=== PATIENT | female | born 1955 | race Caucasian/White ===

== ENCOUNTER 2017-11-17 11:36 | Outpatient (CLI) | payer OTHER ==
--- NOTE | 2017-11-18 14:27 | Mammography Report ---
DATE OF SERVICE: 11/17/2017 EXAM: DIGITAL BILATERAL SCREENING MAMMOGRAM: 11/17/2017 CLINICAL INDICATION: A 62-year-old with a history of late childbearing, family history of breast cancer, for screening. COMPARISON: 02/2015, 07/2013, 10/2011, 08/2009. TECHNIQUE: Routine CC and MLO projections were obtained of the breasts. Bilateral laterally exaggerated craniocaudal views. FINDINGS: The breasts demonstrate scattered fibroglandular densities bilaterally. Coarse and punctate, typically benign calcifications are present. No suspicious masses, clustered microcalcifications, or regions of architectural distortion are identified. IMPRESSION: BENIGN FINDINGS. RECOMMENDATIONS: Routine annual screening unless otherwise clinically indicated. BIRADS CATEGORY 2-BENIGN FINDINGS. STANDARD QUALIFYING STATEMENTS: 1. This examination was reviewed with the aid of Computer-Aided Detection (CAD) . 2. A negative or benign imaging report should not delay biopsy if clinically suspicious findings are present. Consider surgical consultation if warranted. More than 5% of cancers are not identified by imaging. 3. Dense breasts may obscure an underlying neoplasm. TD: 11/18/2017 15:17 [facility]MA
== END 2017-11-17 11:37 | disposition home or self-care (01) ==
LOC: DI.S 11:36
PROVIDERS: ATTEND Physician Assistant Medical
DX: Z12.31 Encounter for screening mammogram for malignant neoplasm of breast (principal); Z80.3 Family history of malignant neoplasm of breast
CPT/HCPCS: 77067

== ENCOUNTER 2020-08-12 15:08 | Outpatient (CLI) | payer MEDICARE | END 2020-08-12 15:09 | disposition home or self-care (01) | LOC: COV 15:08 | PROVIDERS: ATTEND Family Medicine | DX: Z20.828 Contact with and (suspected) exposure to other viral communicable diseases (principal) ==

== ENCOUNTER 2020-09-18 08:03 | Outpatient (CLI) | payer MEDICARE ==
[2020-09-18 15:25] LABS: BASOPHILS % (AUTO) 0.6 %; EOSINOPHILS # (AUTO) 0.1 10^3/uL (0.0-0.7); EOSINOPHILS % (AUTO) 3.4 %; HGB - HEMOGLOBIN 13.8 g/dL (12.0-16.0); LYMPHOCYTES # (AUTO) 1.2 10^3/uL (1.5-3.5); LYMPHOCYTES % (AUTO) 38.9 %; MEAN CORPUSCULAR HEMOGLOBIN 32.9 pg (27.0-31.0); MEAN CORPUSCULAR HGB CONC 32.5 g/dL (32.0-36.0); MEAN CORPUSCULAR VOLUME 101.2 fL (81.0-99.0); MEAN PLATELET VOLUME 12.2 fL (7.9-10.8); MONOCYTES # (AUTO) 0.3 10^3/uL (0.0-1.0); MONOCYTES % (AUTO) 8.5 %; NEUTROPHILS # (AUTO) 1.6 10^3/uL (1.5-6.6); NEUTROPHILS % (AUTO) 48.6 %; PLT - PLATELET COUNT 240 10^3/uL (130-450); RED BLOOD COUNT 4.19 10^6/uL (4.20-5.40); RED CELL DISTRIBUTION WIDTH 11.9 % (12.0-15.0); WHITE BLOOD COUNT 3.2 x10^3/uL (4.8-10.8)
[2020-09-18 16:08] LABS: ALBUMIN 4.3 g/dL (3.2-5.5); ALBUMIN/GLOBULIN RATIO 1.9 (1.0-2.2); ALKALINE PHOSPHATASE 41 IU/L (42-121); ALT ALANINE AMINOTRANSFERASE 14 IU/L (10-60); AST ASPARTATE AMINOTRANSFERASE 17 IU/L (10-42); BUN - BLOOD UREA NITROGEN 18 mg/dL (6-20); CALCIUM 9.4 mg/dL (8.5-10.3); CARBON DIOXIDE - CO2 28 mmol/L (21-32); CHLORIDE 103 mmol/L (101-111); CHOL/HDL RATIO 3.1 (<4.4); CHOLESTEROL 233 mg/dL; CREATININE 0.9 mg/dL (0.4-1.0); GLUCOSE 99 mg/dL (70-100); HDL CHOLESTEROL 74 mg/dL; LDL CHOLESTEROL,CALCULATED 147 mg/dL; SODIUM 139 mmol/L (135-145); TOTAL PROTEIN 6.6 g/dL (6.7-8.2); VLDL CHOLESTEROL 12 mg/dL
== END 2020-09-18 08:04 | disposition home or self-care (01) ==
LOC: LAB.S 08:03
PROVIDERS: ATTEND Registered Nurse
DX: E78.2 Mixed hyperlipidemia (principal); N39.3 Stress incontinence (female) (male); H93.A1 Pulsatile tinnitus, right ear; Z79.899 Other long term (current) drug therapy
CPT/HCPCS: 36415; 80053; 80061; 83721; 84443; 85025

== ENCOUNTER 2021-03-27 07:04 | Outpatient (CLI) | payer MEDICARE ==
[2021-03-27 15:28] LABS: BASOPHILS % (AUTO) 0.8 %; EOSINOPHILS # (AUTO) 0.2 10^3/uL (0.0-0.7); EOSINOPHILS % (AUTO) 4.1 %; HCT - HEMATOCRIT 40.6 % (37.0-47.0); HGB - HEMOGLOBIN 13.2 g/dL (12.0-16.0); LYMPHOCYTES # (AUTO) 1.2 10^3/uL (1.5-3.5); LYMPHOCYTES % (AUTO) 33.1 %; MEAN CORPUSCULAR HEMOGLOBIN 32.9 pg (27.0-31.0); MEAN CORPUSCULAR HGB CONC 32.5 g/dL (32.0-36.0); MEAN CORPUSCULAR VOLUME 101.2 fL (81.0-99.0); MEAN PLATELET VOLUME 11.4 fL (7.9-10.8); MONOCYTES # (AUTO) 0.3 10^3/uL (0.0-1.0); NEUTROPHILS % (AUTO) 53.7 %; PLT - PLATELET COUNT 234 10^3/uL (130-450); RED BLOOD COUNT 4.01 10^6/uL (4.20-5.40); RED CELL DISTRIBUTION WIDTH 11.9 % (12.0-15.0); WHITE BLOOD COUNT 3.6 x10^3/uL (4.8-10.8)
[2021-03-27 15:59] LABS: CALCIUM 9.4 mg/dL (8.5-10.3); CREATININE 0.9 mg/dL (0.4-1.0); POTASSIUM 4.4 mmol/L (3.5-5.0)
[2021-03-28 12:32] LABS: HEPATITIS C ANTIBODY NON-REACTIVE (NON-REACTIVE)
== END 2021-03-27 07:05 | disposition home or self-care (01) ==
LOC: LAB.S 07:04
PROVIDERS: ATTEND Registered Nurse
DX: Z01.84 Encounter for antibody response examination (principal); D72.819 Decreased white blood cell count, unspecified
CPT/HCPCS: 36415; 80048; 85025; 86803

== ENCOUNTER 2021-04-17 08:00 | Outpatient (CLI) | payer MEDICARE | END 2021-04-17 23:59 | disposition home or self-care (01) | LOC: LAB.F 08:00 | PROVIDERS: ATTEND Registered Nurse | DX: R30.0 Dysuria (principal) | CPT/HCPCS: 81002 ==

== ENCOUNTER 2021-04-20 08:00 | Outpatient (CLI) | payer MEDICARE | END 2021-04-20 23:59 | disposition home or self-care (01) | LOC: LAB.S 08:00 | PROVIDERS: ATTEND Physician Assistant Medical | DX: R35.0 Frequency of micturition (principal) | CPT/HCPCS: 87086; 87181 ==

== ENCOUNTER 2021-05-21 15:23 | Outpatient (CLI) | payer MEDICARE ==
[2021-05-28 17:52] LABS: 18 KD (IGG) BAND NON-REACTIVE; 23 KD (IGG) BAND NON-REACTIVE; 23 KD (IGM) BLOT NON-REACTIVE; 28 KD (IGG) BAND NON-REACTIVE; 30 KD (IGG) BAND NON-REACTIVE; 39 KD (IGG) BAND NON-REACTIVE; 39 KD (IGM) BLOT NON-REACTIVE; 41 KD (IGG) BAND NON-REACTIVE; 41 KD (IGM) BLOT NON-REACTIVE; 45 KD (IGG) BAND NON-REACTIVE; 58 KD (IGG) BAND NON-REACTIVE; 66 KD (IGG) BAND NON-REACTIVE; 93 KD (IGG) BAND NON-REACTIVE
== END 2021-05-21 15:24 | disposition home or self-care (01) ==
LOC: LAB.S 15:23
PROVIDERS: ATTEND Acupuncturist
DX: S30.860D Insect bite (nonvenomous) of lower back and pelvis, subsequent encounter (principal); R53.83 Other fatigue
CPT/HCPCS: 81599; 86617; 87801

== ENCOUNTER 2021-09-15 13:15 | Outpatient (CLI) | payer MEDICARE ==
--- NOTE | 2021-09-16 11:50 | Mammography Report ---
BILATERAL DIGITAL SCREENING MAMMOGRAM 3D/2D WITH EXAGGERATED CC: 09/15/2021 CLINICAL: Family history of breast cancer. Comparison is made to exams dated: 11/17/2017 mammogram, 03/11/2015 mammogram, 08/07/2013 mammogram, a nd 11/10/2011 mammogram - [facility]. The tissue of both breasts is predominantly fatty. No significant masses, calcifications, or other findings are seen in either breast. There has been no significant interval change. IMPRESSION: NEGATIVE There is no mammographic evidence of malignancy. A 1 year screening mammogram is recommended. This exam was interpreted at Station ID: [id number]. NOTE: For mammograms, a report in lay terms will be sent to the patient. Approximately 15% of breast malignancies will not be visualized mammographically. In the management of a palpable breast mass, a negative mammogram must not discourage biopsy of a clinically suspicious lesion. Electronically Signed By: Kenton Louie M.D., jr/rororad:09/15/2021 14:20:25 ACR BI-RADS Category 1: Negative 3341F PARENCHYMAL PATTERN: (F) - The breast(s) demonstrate(s) diffuse fatty replacement. BI-RADS CATEGORY: (1) - 1 RECOMMENDATION: (ANNUAL) - Recommend routine annual screening mammography. [id number] 1 year screening LATERALITY: (B)
== END 2021-09-15 13:16 | disposition home or self-care (01) ==
LOC: DI.S 13:15
PROVIDERS: ATTEND Registered Nurse
DX: Z12.31 Encounter for screening mammogram for malignant neoplasm of breast (principal); Z80.3 Family history of malignant neoplasm of breast

== ENCOUNTER 2022-05-20 12:49 | Outpatient (CLI) | payer MEDICARE ==
--- NOTE | 2022-05-20 16:09 | DEXA Report ---
PROCEDURE: Dexa Spine and/or Hip INDICATIONS: SCREENING FOR OSTEOPOROSIS TECHNIQUE: Dual energy x-ray absorptiometry (DXA) was performed on a [employer] System. Regions measur ed are the AP Spine, femoral neck, and if needed forearm. COMPARISON: 08/21/2015. FINDINGS: Lumbar Spine: Bone Mineral Density 0.940 g/cm/cm,T score -2.0, osteopenia Left Hip: Bone Mineral Density 0.908 g/cm/cm,T score -0.8, normal Left Femoral Neck: Bone Mineral Density 0.828 g/cm/cm, T score -1.5, osteopenia (T score greater or equal to -1.0: NORMAL) (T score from -1.1 to -2.4: OSTEOPENIA) (T score less than or equal to -2.5 to: OSTEOPOROSIS) Impression: Osteopenia. Bone mineral density is decreased 6.9% interval since prior exam obtained 08/21/2015. Patients with diagnosis of osteoporosis or osteopenia should have regular bone mineral density assess ment. For those eligible for Medicare, routine testing is allowed once every 2 years. Testing frequ ency can be increased for patients who have rapidly progressing disease or for those who are receivin g medical therapy to restore bone mass. Reviewed by: Faiza Nicholson MD, PhD on 05/20/2022 4:07 PM PDT Approved by: Faiza Nicholson MD, PhD on 05/20/2022 4:07 PM PDT Station ID: [id number]
== END 2022-05-20 12:50 | disposition home or self-care (01) ==
LOC: DI 12:49
PROVIDERS: ATTEND Obstetrics & Gynecology
DX: Z13.820 Encounter for screening for osteoporosis (principal); M85.89 Other specified disorders of bone density and structure, multiple sites

== ENCOUNTER 2023-04-04 15:00 | Outpatient (CLI) | payer MEDICARE ==
--- NOTE | 2023-04-04 09:44 | XRAY Report ---
PROCEDURE: Knee 4 View RT INDICATIONS: RIGHT KNEE PAIN TECHNIQUE: 4 views of the right knee(s) were acquired. COMPARISON: None. FINDINGS: Bones: No fractures or dislocations. No suspicious bony lesions. Definite osteophytes and possibl e narrowing of joint space. This is tricompartmental. Soft tissues: No knee joint effusion. No suspicious soft tissue calcifications or masses. IMPRESSION: No acute bony abnormality. Tricompartmental Kellgren-Baljit scale of osteoarthritis: Grade 1-2: mild osteoarthritis. Reviewed by: Efrain Weaver on 04/04/2023 9:42 AM PDT Approved by: Efrain Weaver on 04/04/2023 9:42 AM PDT Station ID: [id number]
== END 2023-04-04 15:04 | disposition home or self-care (01) ==
LOC: DI.WOS 15:00
PROVIDERS: ATTEND Physician Assistant Surgical
DX: M17.11 Unilateral primary osteoarthritis, right knee (principal)

== ENCOUNTER 2023-04-05 07:10 | Outpatient (CLI) | payer MEDICARE ==
[2023-04-05 15:00] LABS: EOSINOPHILS # (AUTO) 0.1 10^3/uL (0.0-0.7); EOSINOPHILS % (AUTO) 2.6 %; HCT - HEMATOCRIT 44.3 % (37.0-47.0); HGB - HEMOGLOBIN 14.4 g/dL (12.0-16.0); LYMPHOCYTES # (AUTO) 1.4 10^3/uL (1.5-3.5); LYMPHOCYTES % (AUTO) 32.6 %; MEAN CORPUSCULAR HGB CONC 32.5 g/dL (32.0-36.0); MEAN CORPUSCULAR VOLUME 98.4 fL (81.0-99.0); MEAN PLATELET VOLUME 11.1 fL (7.9-10.8); MONOCYTES # (AUTO) 0.3 10^3/uL (0.0-1.0); MONOCYTES % (AUTO) 6.7 %; NEUTROPHILS # (AUTO) 2.4 10^3/uL (1.5-6.6); NEUTROPHILS % (AUTO) 56.9 %; PLT - PLATELET COUNT 238 10^3/uL (130-450); WHITE BLOOD COUNT 4.2 x10^3/uL (4.8-10.8)
[2023-04-05 15:41] LABS: ALBUMIN/GLOBULIN RATIO 1.5 (1.0-2.2); ALKALINE PHOSPHATASE 47 IU/L (42-121); ALT ALANINE AMINOTRANSFERASE 15 IU/L (10-60); AST ASPARTATE AMINOTRANSFERASE 16 IU/L (10-42); BILIRUBIN,TOTAL 0.7 mg/dL (0.2-1.0); BUN - BLOOD UREA NITROGEN 20 mg/dL (6-20); CALCIUM 9.2 mg/dL (8.5-10.3); CARBON DIOXIDE - CO2 27 mmol/L (21-32); CHLORIDE 107 mmol/L (101-111); CHOL/HDL RATIO 3.7 (<4.4); CHOLESTEROL 260 mg/dL; CREATININE 0.8 mg/dL (0.4-1.0); GFR - MDRD 71 (>89); GLUCOSE 108 mg/dL (70-100); HDL CHOLESTEROL 70 mg/dL; LDL CHOLESTEROL,CALCULATED 174 mg/dL; LDL/HDL RATIO 2.5 (<4.4); POTASSIUM 4.5 mmol/L (3.5-5.0); SODIUM 140 mmol/L (135-145); TOTAL PROTEIN 6.6 g/dL (6.7-8.2); TRIGLYCERIDES 78 mg/dL; VLDL CHOLESTEROL 16 mg/dL
[2023-04-05 15:44] LABS: THYROID STIMULATING HORMONE 2.92 uIU/mL (0.34-5.60)
== END 2023-04-05 07:11 | disposition home or self-care (01) ==
LOC: LAB.S 07:10
PROVIDERS: ATTEND Registered Nurse
DX: E78.2 Mixed hyperlipidemia (principal); Z79.899 Other long term (current) drug therapy
CPT/HCPCS: 36415; 80053; 80061; 83721; 84443; 85025

== ENCOUNTER 2023-05-09 08:00 | Outpatient (CLI) | payer MEDICARE ==
--- NOTE | 2023-05-09 16:10 | XRAY Report ---
PROCEDURE: Shoulder 3 View RT INDICATIONS: RIGHT SHOULDER PAIN TECHNIQUE: 3 views of the shoulder were acquired. COMPARISON: None. FINDINGS: Bones: No fractures or dislocations. No suspicious bony lesions. Visualized ribs appear intact. Severe acromioclavicular degenerative narrowing. Mild glenohumeral narrowing. No erosions. Soft tissues: No suspicious soft tissue calcifications. IMPRESSION: Prominent acromioclavicular and mild glenohumeral arthritic change. Reviewed by: Paris Rasmussen MD on 05/09/2023 4:09 PM PDT Approved by: Paris Rasmussen MD on 05/09/2023 4:09 PM PDT Station ID: [id number]
== END 2023-05-09 23:59 | disposition home or self-care (01) ==
LOC: DI.WOS 08:00
PROVIDERS: ATTEND Physician Assistant Surgical
DX: M19.011 Primary osteoarthritis, right shoulder (principal)

== ENCOUNTER 2023-08-02 07:58 | Outpatient (CLI) | payer MEDICARE ==
--- NOTE | 2023-08-02 07:21 | CARDIAC PROCEDURE NOTE ---
Stress Test Report Service Date: 08/02/23 Service Time: 08:00 Ordering Provider: Leigh Walker FNP-C Indication for Test: Assess exertional tolerance and chronotropic response to exercise in patient with incidentally noted bradycardia and PVCs. Significant Medical History: Kenyetta is referred for a treadmill stress echocardiogram to assess incidental findings of bradycardia and PVCs. The first time a slow heart rate was noted was a few months ago when she was traveling in [place] at high altitude, when a pulse oximeter revealed a heart rate in the 30s. Subsequently she had a slow heart rate at an Orthopedic clinic visit. She actually tolerated the trip to high altitude in [place] without too much limitation and remains active, exercising regularly and she is only minimally symptomatic. She does describe very brief and rare fluttering sensations in her chest, but denies dizziness/lightheadedness or chest pain, undue shortness of breath and extremity swelling. She underwent a [facility] screening assessment recently that showed sinus rhythm with PVCs on EKG, mild bilateral carotid artery thickening, no evidence of aortic aneurysm, normal ABIs and a lipid panel that was notable for the following: Total cholesterol 261, HDL cholesterol 70, LDL cholesterol 172, triglycerides 96. Fasting glucose was 104; it does not appear the latter has been further evaluated. Cardiac Risk Factors: Positive for hyperlipidemia (not treated) and family history of heart disease (brother with sudden cardiac after declining recommended CABG surgery at age 59, father with probable cardiac and mother with history of CHF); no history of tobacco smoking, hypertension or diabetes. Type of Stress Test: ETT with Echocardiography Procedure: -Exercise Treadmill Test- After signing informed consent, the patient underwent echo imaging at rest and then performed treadmill exercise using a Wojciech protocol. The patient exercised for 9 minutes 17 seconds and achieved a peak heart rate of 154 (101 percent predicted maximum heart rate for age), and an estimated workload of 10.6 METS. The test was terminated due to fatigue/shortness of breath. Resting heart rate: 63 Peak heart rate: 154 Normal response to exercise. Resting BP: 133/84 Peak BP: 187/88 Normal increase of systolic BP and abnormal increase in diastolic BP in response to exercise. Rhythm during exercise: Sinus rhythm throughout with frequent, primarily monoform, PVCs (352 in total), occurring as singlets, bigeminy, trigeminy, rare couplets and at least a single triplet. Symptoms: No description of dizziness/lightheadedness or chest pressure/discomfort/pain. EKG at rest showed sinus bradycardia with incomplete right bundle branch block pattern, with repolarization abnormalities in scattered leads, including ~0.[address] depression and some T wave flattening/inversion, with occasional PVCs. EKG at peak stress showed ST depression of at least 1.2 mm in multiple leads (III, V3-V6) but baseline abnormality in these leads reduces predictive accuracy for ischemia. In Recovery heart rate rapidly/normally decreased and BP more slowly decreased towards resting levels. Echo imaging, performed at rest and with stress, will be reported separately. Norbert London MD, was present throughout this treadmill stress study and supervised it in its entirety. Summary: 1) Exercise tolerance well above average for age and sex as evidenced by LARA of -53%. 2) Abnormal resting EKG. 3) Adequate level of exercise was achieved on this treadmill stress test. 4) Normal heart rate response to exercise. 5) Normal BP response to exercise. 5) No definitive ischemic changes by EKG criteria were seen at peak stress. 6) Echo image interpretation reveals normal left ventricular size, wall thickness and systolic function, with appropriate hyperdynamic augmentation of all segments with exercise, indicating no evidence of prior infarct or inducible ischemia. Mild elevation of estimated pulmonary artery systolic pressure with normal CVP but no significant valvular abnormalityseen on screening study. See separate report for more details. Conclusions and Recommendations: 1) Excellent exercise capacity with normal increase in HR and BP was observed, without clear symptom, EKG or echocardiographic evidence of inducible ischemia. 2) Further rhythm workup with 7 or 14 day CAM patch through the [employer] [facility] is recommended, to further assess HR variation and PVC density. 3) Given her frequent PVCs and her mother's history of "CHF", referral to Cardiology for consideration for cardiac MRI is advised. Text message sent to referring provider following test conclusion today.
== END 2023-08-02 07:59 | disposition home or self-care (01) ==
LOC: DI 07:58
PROVIDERS: ATTEND Registered Nurse
DX: I49.9 Cardiac arrhythmia, unspecified (principal); E78.5 Hyperlipidemia, unspecified; Z82.49 Family history of ischemic heart disease and other diseases of the circulatory system; I49.3 Ventricular premature depolarization
CPT/HCPCS: 93350

== ENCOUNTER 2023-08-30 15:28 | Outpatient (CLI) | payer MEDICARE | END 2023-08-30 15:29 | disposition home or self-care (01) | LOC: MAC.MOP 15:28 | PROVIDERS: ATTEND Registered Nurse | DX: I49.3 Ventricular premature depolarization (principal) | CPT/HCPCS: 93246 ==

== ENCOUNTER 2023-09-14 12:34 | Outpatient (CLI) | payer MEDICARE ==
--- NOTE | 2023-09-14 19:38 | MRI Report ---
PROCEDURE: SHOULDER WO - RT INDICATIONS: BICEP TENDINITIS TECHNIQUE: Noncontrast oblique coronal T2 fast spin echo with fat saturation, oblique sagittal T1 spin echo and T2 fast spin echo with fat saturation, axial T1 spin echo and T2 fast spin echo with fat saturation t hrough the shoulder. COMPARISON: Right shoulder radiographs 05/09/2023. FINDINGS: Image quality: Excellent. Rotator cuff: Mild supraspinatus and infraspinatus tendinosis. The teres minor tendon is intact. The re is low-grade partial bursal sided tearing of the subscapularis tendon at the distal insertion supe rimposed on mild tendinosis. The rotator cuff musculature is normal in bulk. Bones and bursae: Prominent osseous edema is seen surrounding the acromioclavicular joint with super imposed subchondral cystic changes and marginal osteophytes. Findings are favored to be secondary to severe osteoarthrosis although prior trauma is not excluded. No definite osseous erosions are seen. T here is a small amount of fluid in the subacromial/subdeltoid bursa. Chronic traction cystic changes are seen in the posterosuperior humeral head. Mild partial thickness cartilage irregularity in the gl enohumeral joint with marginal osteophyte formation in the glenoid rim. No significant glenohumeral e ffusion. Capsule and soft tissues: No displaced labral tear is seen. The proximal biceps long head tendon dem onstrates moderate tendinosis as well as perching and possible early medial subluxation at the medial aspect of the bicipital groove. There is partial effacement of the fat signal in the rotator interva l. The anterior band of the inferior glenohumeral ligament appears mildly thickened. IMPRESSION: 1.Prominent osseous edema surrounding the acromioclavicular joint with superimposed subchondral cysti c changes and marginal osteophyte formation. Findings are most suspicious for severe osteoarthrosis, although degenerative changes with superimposed trauma could produce similar findings if there has be en a recent injury. No definite osseous erosions or joint effusion is seen to suggest an infectious o r inflammatory process, although these possibilities cannot be entirely excluded. Recommend correlati on with clinical findings and history. 2.Low-grade partial intrasubstance and bursal sided tearing of the subscapularis tendon at the superi or insertion superimposed on mild tendinosis. Mild supraspinatus and infraspinatus tendinosis. 3.Moderate proximal biceps long head tendinosis with perching along the medial aspect of the bicipita l groove versus mild early subluxation. 4.Mild glenohumeral osteoarthrosis. 5.Small subacromial/subdeltoid bursal effusion or mild bursitis. 6.Partial effacement of the rotator interval fat and mild thickening of the inferior glenohumeral lig ament are nonspecific, but can be seen in the setting of the clinical syndrome of adhesive capsulitis . Reviewed by: Aaron Saunders MD on 09/14/2023 7:37 PM PDT Approved by: Aaron Saunders MD on 09/14/2023 7:37 PM PDT Station ID: [id number]
== END 2023-09-14 12:35 | disposition home or self-care (01) ==
LOC: DI 12:34
PROVIDERS: ATTEND Physician Assistant Surgical
DX: M75.21 Bicipital tendinitis, right shoulder (principal); R93.6 Abnormal findings on diagnostic imaging of limbs; M75.111 Incomplete rotator cuff tear or rupture of right shoulder, not specified as traumatic; M75.81 Other shoulder lesions, right shoulder; M19.011 Primary osteoarthritis, right shoulder

== ENCOUNTER 2024-05-21 07:15 | Outpatient (CLI) | payer MEDICARE, OTHER ==
--- NOTE | 2024-05-21 08:57 | XRAY Report ---
PROCEDURE: Chest 2V INDICATIONS: ACUTE COUGH TECHNIQUE: 2 views of the chest were acquired. COMPARISON: None. FINDINGS: Surgical changes and devices: None. Lungs and pleura: Mild pulmonary interstitial prominence. No focal consolidation. No pleural effusion s or pneumothorax. Mediastinum: Mediastinal contours appear normal. Heart size is normal. Bones and chest wall: No suspicious bony lesions. Overlying soft tissues appear unremarkable. IMPRESSION: No acute cardiopulmonary process. Reviewed by: Ish Dwyer MD on 05/21/2024 8:56 AM PDT Approved by: Ish Dwyer MD on 05/21/2024 8:56 AM PDT Station ID: [id number]
== END 2024-05-21 07:16 | disposition home or self-care (01) ==
LOC: DI.S 07:15
PROVIDERS: ATTEND Registered Nurse
DX: R05.1 Acute cough (principal); R53.83 Other fatigue

== ENCOUNTER 2024-06-12 10:56 | Outpatient (CLI) | payer MEDICARE, OTHER | END 2024-06-12 23:59 | disposition critical access hospital (66) | LOC: EMS 10:56 | DX: S69.92XA Unspecified injury of left wrist, hand and finger(s), initial encounter (principal); W01.0XXA Fall on same level from slipping, tripping and stumbling without subsequent striking against object, initial encounter; Y93.69 Activity, other involving other sports and athletics played as a team or group; Y92.29 Other specified public building as the place of occurrence of the external cause | CPT/HCPCS: A0425; A0427 ==

== ENCOUNTER 2024-06-12 11:33 | Emergency (ER) | payer MEDICARE, OTHER ==
--- NOTE | 2024-06-12 11:47 | ED Physician Documentation ---
PD HPI Fall - Stated complaint Stated Complaint: L WRIST INJURY - Additional information Additional information: 68 yo female here for left wrist deformity. No pertinent past medical history Presents emergency department via EMS for deformed left wrist. Patient's recall take a step back and fell backwards onto outstretched arm and Immediately felt pain. 911 was called EMS put her in air splint she has obvious deformity to her left wrist. Did not hit head, not on any blood thinners. Patient received 150 mcg of fentanyl and route via EMS. PD PAST MEDICAL HISTORY - Past Medical History Cardiovascular: None Respiratory: None Endocrine/Autoimmune: None GI: None : None, Incontinence HEENT: None Musculoskeletal: None Derm: None - Past Surgical History /RECORD FILING CLERK: section - Present Medications Home Medications: Ambulatory Orders Medication Instructions Recorded Confirmed Cholecalciferol [Vitamin D3] 25 mcg PO DAILY 06/12/24 06/12/24 HYDROcod/ACETAM 5/325 [[place] 5/325] 1 tab PO Q6H PRN #15 tab 06/12/24 - Allergies Allergies/Adverse Reactions: Allergies Allergy/AdvReac Type Severity Reaction Status Date / Time No Known Drug Allergies Allergy Verified 06/12/24 11:44 PD ED PE NORMAL - Vitals Vital signs reviewed: Yes - General General: Alert and oriented X 3, No acute distress, Well developed/nourished - HEENT HEENT: Atraumatic - Free text exam Free text exam: Left Upper extremity: Obvious deformity at the left wrist strong radial pulse CMS intact able to wiggle fingers unable to flex or extend wrist due to obvious deformity no elbow tenderness or swelling no shoulder tenderness or swelling Results - Vitals Vitals: Vital Signs - 24 hr 06/12/24 06/12/24 11:44 13:30 Temperature 36 C L Heart Rate 50 L 50 L Respiratory 16 16 Rate Blood Pressure 131/72 H 116/81 H O2 Saturation 97 99 Oxygen O2 Source Room air - Rads (name of study) . Left wrist x-ray Relevant Findings:: Final report received, EMP independent interpretation of test, Other (Markedly comminuted impacted displaced distal radius fracture with associated radiocarpal dislocation. Ulnar styloid avulsions with distal radial ulnar dislocation) Procedures - Splint (location) - Minor Upper extremity left Splint applied by: Physician, Other (SIGNAL MECHANIC) Type of splint: Fiberglass, Short arm, Sugar tong Other: Patient tolerated well, No complications, Neurovascular intact, Good alignment, Sling provided - Reduction Body part reduced: Left Fracture or dislocation: Fracture dislocation Anesthesia: Hematoma block Reduction aftercare: NV intact, Xray confirms reduction, Alignment improved, Splint applied, Patient tolerated well PD Medical Decision Making - ED course ED course: 68-year-old female presents emergency department for obvious left wrist deformity. She does have strong radial pulses CMS intact capillary refill less than 2 seconds. X-rays Of the hand, wrist and forearm are completed and reveal Markedly comminuted impacted displaced distal radius fracture with associated radiocarpal dislocation as well as ulnar styloid avulsion and distal radial ulnar dislocation. I spoke with Dr. Carlson about the patient and he recommends doing a hematoma block and attempting to reduce it back to better alignment is much as possible. Patient must likely need surgery and will need follow-up with a hand surgeon. She has strong radial Pulse and CMS intact Pulse CMS intact pre and post reduction. Dr. Estrella was at bedside with support for hematoma block and reduction. Post film reductions show significant improvement in alignment. Patient is placed in a sugar-tong splint and Told to follow-up with hand surgeon within the week. She is given multiple phone numbers to reach out to hand surgeon within the next week. I am prescribing a short course of short-acting opioid pain medication for this patient. I have reviewed the patients PROMOTIONS OFFICER and no concerning findings were noted. I have discussed that the opioids are for short term therapy only, and will not be refilled from the ED. Patient given very strict return precautions all questions answered and safe for discharge at this time. Departure - Departure Disposition: 01 Home, Self Care Clinical Impression: Displaced fracture of head of left radius, Radiocarpal joint dislocation, closed Instructions: ED Fx Radial Head, ED Splint Care Fiberglass Prescriptions: HYDROcod/ACETAM 5/325 [[place] 5/325] 1 tab PO Q6H PRN #15 tab PRN Reason: Pain >8 Comments: You have multiple broken bones to your wrist and hand. I have copied and pasted the radiology report below is very important that you follow-up with a hand s urgeon as soon as possible as you will need surgery within the next week. You can read them the radiology x-rays below if they have any questions about what specific bones were dislocated or fractured. You can call the [facility] hand surgery center their phone number is [phone] You can also call [facility] their phone number is [phone] if they are unable to get you in within the next week I would asked them if they have any other hand surgeon that they recommend who might be able to get you in sooner. I am prescribing a short course of narcotic pain medication for you. These are potentially dangerous and addictive medications that should be used carefully. These medications may constipate you. Take an jwbe-nek-[id number] stool softener (docusate) twice daily with plenty of water while taking these medications. If you go 24 hours without a bowel movement, take [id number] miralax, per package instructions. Do not drink or drive while taking these medications. If you received narcotic or sedating medications while in the emergency department, do not drive for 24 hours. Store this medication in a safe, secure place and out of reach of children. It is a violation of federal law to give or sell this medication to another person or to use in a manner other than prescribed. The ED will not refill narcotic prescriptions, including prescriptions lost or stolen. To dispose of unwanted medications: 1. [facility] at [address] in [place] has a medication drop box. They accept prescription medications (in pill form) Tuesday through Tuesday 9:00 a.m. to 5:00 p.m. 2. The [facility] accepts prescription medications (in pill form only) for disposal year round. Call for more information. 3. Contact the [facility] for the next [facility] sponsored prescription drug collection event. , [phone], or [phone]; Note that many narcotic pain relievers also contain Tylenol/acetaminophen. Please ensure that your total dose of acetaminophen from all sources does not exceed 3 g (3000 mg) per day. IMPRESSION: Markedly comminuted, impacted, displaced distal radius fracture with associated radiocarpal dislocation. There is also an ulnar styloid avulsion and a distal radial ulnar dislocation. Forms: PCP List Discharge Date/Time: 06/12/24 14:52
--- NOTE | 2024-06-12 12:19 | XRAY Report ---
PROCEDURE: Wrist 3+V LT INDICATIONS: deformed left wrist TECHNIQUE: 3 views of the wrist were acquired. COMPARISON: None. FINDINGS: Bones: Markedly comminuted, impacted, and displaced distal radius fracture with associated radiocarp al dislocation. There is a ulnar styloid avulsion. There is a distal radial ulnar dislocation as well . Soft tissues: No suspicious soft tissue calcifications or masses. IMPRESSION: Markedly comminuted, impacted, displaced distal radius fracture with associated radiocarpal dislocati on. There is also an ulnar styloid avulsion and a distal radial ulnar dislocation. Reviewed by: Dylan Tom MD on 06/12/2024 12:18 PM PDT Approved by: Dylan Tom MD on 06/12/2024 12:18 PM PDT Station ID: [id number]
[2024-06-12] MEDS: ACETAMINOPHEN 500 MG TABLET PO STA ×2 (12:26→13:55)
[2024-06-12] MEDS: BUPIVACAINE 0.5% PF 10 ML VIAL IM ONE (12:28)
[2024-06-12] MEDS: HYDROmorphone 0.5 MG/0.5 ML SYRINGE IVP STA (12:52)
[2024-06-12] MEDS: KETOROLAC 30 MG/ML VIAL IVP STA (13:55)
[2024-06-12 14:21] VITALS: BP 116/81; O2SAT 99
--- NOTE | 2024-06-12 14:21 | XRAY Report ---
PROCEDURE: Wrist 1-2V LT INDICATIONS: post reduction TECHNIQUE: 2 views of the wrist were acquired. COMPARISON: Left wrist x-ray series 06/12/2024 at 1218 hours. FINDINGS: Bones: Status post closed reduction of comminuted, intra-articular, distal radius fracture. There is improved alignment following closed reduction. Other solid process fracture redemonstrated. Soft tissues: No suspicious soft tissue calcifications or masses. IMPRESSION: Status post closed reduction of distal radius fracture with improved alignment. Reviewed by: Faiza Nicholson MD, PhD on 06/12/2024 2:20 PM PDT Approved by: Faiza Nicholsno MD, PhD on 06/12/2024 2:20 PM PDT Station ID: [id number]
== END 2024-06-12 14:52 | disposition home or self-care (01) ==
LOC: EDUNIT# → ED 11:33
DX: S52.502A Unspecified fracture of the lower end of left radius, initial encounter for closed fracture (principal); S52.612A Displaced fracture of left ulna styloid process, initial encounter for closed fracture; W18.30XA Fall on same level, unspecified, initial encounter; Y93.69 Activity, other involving other sports and athletics played as a team or group
CPT/HCPCS: 25605; 73100; 73110; 96374; 96375; 99283; 99284; A9270; J1170